=== PATIENT | female | born 1975 | race Caucasian/White ===

== ENCOUNTER 2017-02-02 14:55 | Emergency (ER) | payer OTHER ==
[~2017-02-02] VITALS: Wt 83.0 kg
[~2017-02-02 14:55] MED LIST: HYDR-902 PO
[2017-02-02] MEDS ORDERED: KETOROLAC 60 MG INJ IM STA (15:56)
--- NOTE | 2017-02-02 17:15 | RADRPT ---
PROCEDURE: XR Lumbar Spine. CLINICAL INDICATION: Low back pain TECHNIQUE: AP, lateral and cone-down lateral view of the lumbar spine were obtained. COMPARISON: 04/01/2015 FINDINGS: There is normal vertebral mineralization and alignment. No fracture or subluxation is seen. There is apparent mild increase disc height loss and endplate degenerative changes at the L1-2, L2-3 and L4-5 levels. Mild degenerative changes at L5-S1. The posterior elements are unremarkable. The soft tissues appear normal. IMPRESSION: Mild increase degenerative changes at L1-2, L2-3 and L4-5. Physician Teodoro Date Time Electronically viewed and signed by Physician Teodoro on 02/02/2017 17:14 /
--- NOTE | 2017-02-02 17:15 | RADRPT ---
PROCEDURE: Left knee x-ray CLINICAL INDICATION: knee pain TECHNIQUE: AP, lateral and oblique views of the left knee were obtained. COMPARISON: None FINDINGS: There is normal mineralization. No acute fracture or dislocation is seen. There are no significant degenerative changes. There is no joint effusion. There is no significant soft tissue swelling. IMPRESSION: Unremarkable left knee radiographs. Physician Teodoro Date Time Electronically viewed and signed by Physician Teodoro on 02/02/2017 17:15 /
--- NOTE | 2017-02-02 17:17 | RADRPT ---
PROCEDURE: XR Ankle. CLINICAL INDICATION: left ankle pain TECHNIQUE: AP and lateral views of the left ankle were performed. COMPARISON: None. FINDINGS: There is normal mineralization and alignment. No fracture or osseous lesion is identified. The joint spaces are normal. Mild lateral ankle soft tissue swelling is noted. There is a plantar calcaneal s pur. IMPRESSION: Mild lateral ankle soft tissue swelling. No evidence of fracture. Physician Teodoro Date Time Electronically viewed and signed by Physician Teodoro on 02/02/2017 17:17 CS/
[2017-02-02] MEDS ORDERED: IBUP-1542 PO (17:20)
[2017-02-02] MEDS ORDERED: MED4DP PO (17:20)
[2017-02-02] MEDS ORDERED: OXYC-279 PO (17:21)
--- NOTE | 2017-02-02 17:29 | ERD ---
ER Documentation Chief Complaint Date/Time DATE: 02/02/17 TIME: 17:24 Chief Complaint BACK PAIN X1 DAY, NO INJURY HPI This is a 41-year-old female presents to the ER with lower back pain that radiates down her leg.Left leg. Patient states that she also has left knee pain and left ankle pain. Patient has had a past medical history of lower back pain in the past and did have surgery for this. Patient states that this started after she was lifting heavy jugs. Her pain started yesterday and is better today, however still very painful. Patient tried taking ibuprofen and [place] however it did not work. Patient denies any fevers or chills. She denies any urinary bowel incontinence she denies any saddle like anesthesia. She denies any IV drug use. ROS 12 point review of systems was done, all negative except per HPI. Medications Home Meds Active Scripts Oxycodone HCl/Acetaminophen (Percocet 5-325 mg Tablet) 1 Each Tablet, 1 EACH PO Q6, #8 TAB Prov:JOSEPH FERGUSON 02/02/17 Methylprednisolone* (Medrol* DOSE PACK) 4 Mg/Dose-Pack Tab.ds.pk, 4 MG PO . DIRECTED for 6 Days, PACKET Prov:JOSEPH FERGUSON 02/02/17 Ibuprofen* (Motrin*) 600 Mg Tab, 600 MG PO Q6, #30 TAB Prov:JOSEPH FERGUSON 02/02/17 Hydrocodone/Acetaminophen ([place] 10-325 Tablet) 1 Each Tablet, 1 TAB PO Q8 Y for PAIN for 3 Days, #10 TAB 0 Refills Prov:DORETHA HERRERA PA-C 02/02/16 Allergies Allergies: Coded Allergies: amoxicillin (Verified Allergy, Unknown, 02/02/17) acetaminophen (Verified Adverse Reaction, Mild, VOMITING, 02/02/17) hydrocodone bit (Verified Adverse Reaction, Mild, VOMITING, 02/02/17) PMhx/Soc Medical and Surgical Hx: pt denies Medical Hx History of Surgery: Yes (JAMIL, RIGHT ELBOW SX/CARPAL TUNNEL, hysterectomy, BACK SX 04/06) Anesthesia Reaction: No Hx Neurological Disorder: No Hx Respiratory Disorders: No Hx Cardiac Disorders: No Hx Psychiatric Problems: No Hx Miscellaneous Medical Probl: Yes (breast biopsy/benign) Hx Alcohol Use: No Hx Substance Use: No Hx Tobacco Use: No Smoking Status: Never smoker Physical Exam Vitals Vital Signs Date Time Temp Pulse Resp B/P Pulse Ox O2 Delivery O2 Flow Rate FiO2 02/02/17 14:58 98.2 90 17 152/77 97 Physical Exam GENERAL: The patient is well developed and appropriate for usual state of health , in no apparent distress. NECK: C-spine is soft and supple. There is no cervical lymphadenopathy. CHEST: Clear to auscultation bilaterally. There are no rales, wheezes or rhonchi. HEART: Regular rate and rhythm. No murmurs, clicks, rubs or gallops. ABDOMEN: Soft, nontender and nondistended. Good bowel sounds. No rebound or guarding. No gross peritonitis. No gross organomegaly or masses. No [place] sign or McBurney point tenderness. No pulsatile abdominal mass. BACK: No midline or flank tenderness. Tender to palpation from L3-L5. Tense paraspinal muscles. Negative leg raise test. No step- offs. EXTREMITIES: Equal pulses bilaterally. There is no peripheral clubbing, cyanosis or edema. No focal swelling or erythema. Full range of motion. Grossly neurovascularly intact.Patient did have some pain to the lateral malleolus of the left ankle, she however has full and nonpainful range of motion. There is no redness or swelling to the ankle. Patient also had some pain to the left knee, however she has full and nonpainful range of motion of the left knee. Negative anterior drawer negative posterior drawer negative Almaz test. +2 pedal pulses. NEURO: Alert and oriented. Cranial nerves II through XII are intact. Motor strength in all 4 extremities with 5/5 strength. Sensation grossly intact. Normal speech and gait. SKIN: There is no apparent rash or petechia. The skin is warm and dry. Results 24 hrs Current Medications Medications (Trade) Dose Ordered Sig/Paco Route PRN Reason Start Time Stop Time Status Last Admin Dose Admin Ketorolac Tromethamine (Toradol) 60 mg ONCE STAT IM 02/02/17 15:56 02/02/17 15:59 DC 02/02/17 16:12 Procedures/MDM Differential Diagnosis includes but is not limited to back strain, vertebral fracture, epidural abscess, cauda equina, herniated disc, AAA rupture, kidney stones, UTI, pyelonephritis. Patient has a past medical history of back pain, patient did lift something heavy and aggravated her symptoms. At this time suspicion for cauda equina or diskitis is low. Patient is afebrile and well- appearing. Patient able to ambulate in the ER, she is neurovascularly intact. Patient will be sent home with ibuprofen, a medrol dose pack and percocet. Patient did not have any evidence of fractures or dislocations on x-ray images. She is to follow-up with her primary care doctor within 1-2 days return to ER sooner if symptoms worsen. My medical decision making sure with the patient she understands and agrees with plan. Departure Diagnosis: Primary Impression: Back pain Condition: Stable Patient Instructions: Back Pain (Acute Or Chronic) Additional Instructions: Call your primary care doctor TOMORROW for an appointment during the next 1-2 days.See the doctor sooner or return here if your condition worsens before your appointment time. JOSEPH FERGUSON Feb 02, 2017 17:29
== END 2017-02-02 18:06 | disposition home or self-care (01) ==
LOC: FTE 14:55
DX: M54.42 Lumbago with sciatica, left side (principal)
CPT/HCPCS: 72100; 73562; 73610; 96372; 99284; J1885